=== PATIENT | male | born 1950 | race Caucasian/White ===

== ENCOUNTER 2017-08-11 10:03 | Emergency (ER) | payer MEDICARE ==
[2017-08-11] MEDS ORDERED: Ibuprofen TAB* 400 MG PO ONE (10:52)
--- NOTE | 2017-08-11 10:59 | UC ---
Minor Trauma HPI - HPI Summary HPI Summary: Patient presents s/p fall two days ago going up the stairs, and he struck the left side of his ribs on the stairs. He has had pain in the left lower rib cage since then, and states that the pain is getting worse. He states the pain is constant, and worse with movement, coughing, and/or movement. He denies fever, chills, head or neck injury and no LOC. - History of Current Complaint Hx Obtained From: Patient Onset/Duration: Sudden Onset Onset Of Pain: Immediate Severity Initially: Severe Severity Currently: Severe Mechanism Of Injury: Blunt Trauma, Direct Blow Aggravating Factor(s): Coughing, Deep Breaths, Movement Alleviating Factor(s): Other: - percocets 10/325mg splinting - Risk Factors Penetrating Injury Risk Factors: Negative Compartment Syndrome Risk Factors: Pain <Ivon Saha - Last Filed: 08/11/17 12:06> <Amalia Morrell - Last Filed: 08/11/17 13:02> - History of Current Complaint Chief Complaint: UCTrauma Stated Complaint: RIB INJURY Time Seen by Provider: 08/11/17 10:41 - Allergies/Home Medications Allergies/Adverse Reactions: Allergies Allergy/AdvReac Type Severity Reaction Status Date / Time Atorvastatin [From Lipitor] AdvReac Intermediate lost voice Verified 08/11/17 10 :42 PMH/Surg Hx/FS Hx/Imm Hx Previously Healthy: Yes - Surgical History Surgical History: Yes Surgery Procedure, Year, and Place: Tonsillectomy 03/2014. laminectomy march 2013. Meniscus repair- Lt KNEE. hernia REPAIR with mesh. carpal tunnel bilat. LT Shoulder repair/replacement June 2014. Cervical Fusion C2-C7 Oct 2013. Sep 2016 - left femur repair follow fall - Family History Known Family History: Positive: Hypertension, Diabetes, Respiratory Disease, Other - No FHx of blood clotting disorders - Social History Occupation: Retired Alcohol Use: None Substance Use Type: Prescribed Smoking Status (MU): Former Smoker Type: Cigarettes Amount Used/How Often: 3/4-1 PPD X OFF AND ON 20 YEARS Length of Time of Smoking/Using Tobacco: 15 years Have You Smoked in the Last Year: No When Did the Patient Quit Smoking/Using Tobacco: 20 years ago - Immunization History Most Recent Influenza Vaccination: 2016 Most Recent Tetanus Shot: unknown Most Recent Pneumonia Vaccination: unknown <Saha,Ivon Wayne - Last Filed: 08/11/17 12:06> Review of Systems Musculoskeletal: Myalgia All Other Systems Reviewed And Are Negative: Yes <Ivon Saha - Last Filed: 08/11/17 12:06> Physical Exam Triage Information Reviewed: Yes Appearance: Pain Distress Vital Signs: Initial Vital Signs Temp 97.9 F 08/11/17 10:34 Pulse 70 08/11/17 10:34 Resp 18 08/11/17 10:34 BP 130/85 08/11/17 10:34 Pulse Ox 99 08/11/17 10:34 Vital Signs Reviewed: Yes Eye Exam: Normal ENT Exam: Normal Neck exam: Normal Respiratory Exam: Normal Cardiovascular Exam: Normal Abdominal Exam: Normal Musculoskeletal: Positive: Other: - ribs left;inspection no areas of bruising, edema, or eccymosis. tenderness on palpation of lateral aspects of ribs 8,9,10. Skin Exam: Normal <Ivon Saha - Last Filed: 08/11/17 12:06> Vital Signs: Initial Vital Signs Temp 97.9 F 08/11/17 10:34 Pulse 70 08/11/17 10:34 Resp 18 08/11/17 10:34 BP 130/85 08/11/17 10:34 Pulse Ox 99 08/11/17 10:34 <Amalia Morrell - Last Filed: 08/11/17 13:02> Minor Trauma Course/Dx - Course Course Of Treatment: Patient presents s/p mechanical fall up the stairs two days ago, He has percocet 10/325 that he takes routinely for chronic pain. Ibuprofen was also given here, 400 mg x one dose. xrays were obtained and read as fracture of ribs eigth and nine. He was given instructions to splint when coughing, continue current pain medications and in addition add on Ibuprofen 400 three times daily. - Differential Dx/Diagnosis Differential Diagnosis/HQI/PQRI: Contusion(s), Fracture Provider Diagnoses: Fracture ribs. Rib contusion <Ivon Saha - Last Filed: 08/11/17 12:06> Discharge <Ivon Saha - Last Filed: 08/11/17 12:06> <Amalia Morrell - Last Filed: 08/11/17 13:02> - Discharge Plan Condition: Stable Disposition: HOME Patient Education Materials: Rib Fracture (ED) Referrals: Matilde Mathew MD [Primary Care Provider] - Xochitl Frederick MD [Medical Doctor] - Attestation Statement User Type: Provider - I was available for consult. This patient was seen by the [facility]. The patient was not presented to, seen by, or examined by me. -Macrina <Amalia Morrell - Last Filed: 08/11/17 13:02>
[2017-08-11 11:01] VITALS: BP 130/85
--- NOTE | 2017-08-11 11:47 | RAD ---
Indication: Rib pain. 3 views of left ribs are reviewed. There is fracture of the left ninth rib laterally. There is also fracture of the right eighth rib. The lung ulrich demonstrate no pneumothorax. There appears to BE chronic interstitial disease. IMPRESSION: Fractures of left eighth and ninth ribs.
== END 2017-08-11 12:00 | disposition home or self-care (01) ==
LOC: UCEAST 10:03
DX: S22.39XA Fracture of one rib, unspecified side, initial encounter for closed fracture (principal); Z87.891 Personal history of nicotine dependence; W10.9XXA Fall (on) (from) unspecified stairs and steps, initial encounter; Y92.9 Unspecified place or not applicable; S30.1XXA Contusion of abdominal wall, initial encounter
CPT/HCPCS: 99212; A9270-GY; G0463

== ENCOUNTER 2020-12-02 07:30 | Inpatient (IN) ==
[2021-02-03] MEDS ORDERED: Buffered Lidocaine 1% SYRIN 1 ml INTRADERM ONE ×2 (06:00→06:23)
[2021-02-03] MEDS ORDERED: Lactated Ringers 1000 ml BAG 1,000 ML IV SCH (06:00)
[2021-02-03] MEDS ORDERED: ceFAZolin 2 GM PREMIX 2 GM/50 ML BAG ONE (06:23)
[2021-02-03] MEDS ORDERED: fentaNYL 100 mcg/2 ml 50 MCG/ML VIAL ONE ×5 (06:56→15:23)
[2021-02-03] MEDS ORDERED: HYDROmorphone 1 MG/1 ML SYRINGE ONE (06:56)
[2021-02-03] MEDS ORDERED: Remifentanil 2 MG VIAL ONE ×2 (06:57→11:25)
[2021-02-03] MEDS ORDERED: Ketamine HCL 50 mg/ml 10 ml VIAL (500 MG) ONE (06:57)
[2021-02-03] MEDS ORDERED: Midazolam 2 mg/2 ml VIAL 1 mg/ml 2 ml VIAL (2 mg) ONE (06:57)
[2021-02-03] MEDS ORDERED: Succinylcholine 200 mg VIAL 20 mg/ml 10 ml VIAL (200 mg) ONE (06:57)
[2021-02-03] MEDS ORDERED: Lidocaine 2% PF 5 ML VIAL ONE (06:57)
[2021-02-03] MEDS ORDERED: Glycopyrrolate IV 0.2 MG/ML 1 ML VIAL ONE ×2 (06:57→08:44)
[2021-02-03] MEDS ORDERED: Rocuronium 50 mg VIAL 10 mg/ml 5 ml VIAL (50 mg) ONE (06:57)
[2021-02-03] MEDS ORDERED: Propofol 10 MG/ML 20 ML BTL ONE (06:58)
[2021-02-03] MEDS ORDERED: Propofol 10 mg/ml 100 ML BTL 100 ML ONE (07:00)
[2021-02-03] MEDS ORDERED: Bupivacaine 0.25% EPI 200,000 30 ML SDV ONE (07:17)
[2021-02-03] MEDS ORDERED: Bacitracin INJECTION 50,000 UNITS ONE (07:17)
[2021-02-03] MEDS ORDERED: Bupivacaine 0.25% SDV 30 ML ONE (08:16)
[2021-02-03] MEDS ORDERED: Phenylephrine IV 10 MG/ML 1 ml VIAL ONE (08:17)
[2021-02-03] MEDS ORDERED: Ondansetron 4 mg VIAL 2 MG/ML 2 ml VIAL ONE ×2 (08:44→14:07)
[2021-02-03] MEDS ORDERED: Ondansetron 4 mg VIAL 2 MG/ML 2 ml VIAL IV PRN ×2 (08:58→14:05)
[2021-02-03] MEDS ORDERED: Naloxone 0.4 mg VIAL 0.4 mg/ml 1 ml VIAL IV PRN (08:58)
[2021-02-03] MEDS ORDERED: DiMENhydriNATE IV 50 mg/ml 1 ml VIAL IV PUSH PRN (08:58)
[2021-02-03] MEDS ORDERED: oxyCODONE/Acetamin 5/325 mg TAB PO PRN ×3 (08:58→17:19)
[2021-02-03] MEDS ORDERED: Dexamethasone IV 4 MG/ML VIAL 1 ml VIAL ONE (09:15)
[2021-02-03] MEDS ORDERED: Propofol 10 mg/ml 100 ML BTL 200 ML ONE (09:40)
[2021-02-03] MEDS ORDERED: HYDROcodone/ACETAMIN 5/325 mg TAB PO PRN ×2 (14:05)
[2021-02-03] MEDS ORDERED: Magnesium Hydroxide LIQ 30 ML UDC PO PRN (14:05)
[2021-02-03] MEDS: fentaNYL 100 mcg/2 ml 50 MCG/ML VIAL IV PRN ×5 (14:08→15:31)
[2021-02-03] MEDS ORDERED: oxyCODONE/Acetamin 5/325 mg TAB ONE (14:27)
[2021-02-03] MEDS ORDERED: Senna TAB 8.6 mg TAB PO PRN (17:32)
[2021-02-03] MEDS ORDERED: Dextran 70/Hypromellose Tears Eye Drops 15 ml BTL (for Artificials Tears) BOTH EYES PRN (17:33)
[2021-02-03] MEDS ORDERED: fentaNYL PATCH 75 MCG/HR 1 PATCH TRANSDERM SCH (18:00)
[2021-02-03] MEDS: fentaNYL Patch Check Q Shift NOTE FOLLOW UP SCH (19:52)
[2021-02-03] MEDS: oxyCODONE/Acetamin 5/325 mg TAB PO PRN (20:27)
[2021-02-03] MEDS ORDERED: HYDROmorphone 1 MG/1 ML SYRINGE IV SLOW PU PRN (20:33)
[2021-02-04] MEDS: oxyCODONE/Acetamin 5/325 mg TAB PO PRN ×3 (04:35→14:16)
[2021-02-04] MEDS: fentaNYL Patch Check Q Shift NOTE FOLLOW UP SCH (07:23)
[2021-02-04 11:10] VITALS: BP 139/88
== END 2021-02-04 15:30 | disposition home or self-care (01) | DRG 460 ==
LOC: AA 02-03 06:05 → SSU 02-03 16:08
PROVIDERS: ADMIT Neurological Surgery; ATTEND Neurological Surgery

== ENCOUNTER 2024-05-08 16:44 | Inpatient (IN) ==
[2024-05-08 17:23] LABS: ABS Basophils 0.1 10^3/uL (0.0-0.1); ABS Eosinophils 0.2 10^3/uL (0.0-0.5); ABS Lymphocytes 1.8 10^3/uL (1.0-4.8); ABS Neutrophils 10.2 10^3/uL (1.5-7.6); Eosinophil % 1.5 %; Hematocrit 39.9 % (38-53); Hemoglobin 13.2 g/dL (13.2-16.3); Lymphocyte % 13.7 %; Mean Corpuscular Hemoglobin 30.9 pg (27-33); Mean Corpuscular Hgb Conc 32.9 g/dL (31-36); Mean Corpuscular Volume 93.8 fL (80-97); Mean Platelet Volume 7.4 fL (7.5-11.2); Platelet Count 462 10^3/uL (150-450); Red Blood Count 4.26 10^6/uL (4.06-5.63); Red Cell Distribution Width 14.2 % (12-17); White Blood Count 13.2 10^3/uL (3.6-10.2)
[2024-05-08 17:31] LABS: INR 1.1 (0.83-1.13)
[2024-05-08] MEDS: Albuterol/Ipratropium NEB.SOL (2.5/0.5 MG) 3 ML NEB.SOLN INH ONE (17:46)
[2024-05-08 17:47] LABS: Albumin 3.6 g/dL (3.2-5.2); Albumin/Globulin Ratio 1.1 (1-3); Calcium 8.9 mg/dL (8.6-10.3); Creatinine, Serum 0.66 mg/dL (0.67-1.17); Globulin 3.2 g/dL (2-4); Potassium 4.3 mmol/L (3.5-5.0); Total Bilirubin 0.5 mg/dL (0.2-1.0); Total Protein 6.8 g/dL (6.4-8.9); eGFR CKD-EPI 100.3 (>60)
[2024-05-08 18:32] LABS: Venous Bicarbonate HCO3 25.4 mmol/L (24-28)
[2024-05-08] MEDS: Iohexol 350 (CONTRAST) 500 ML MDV IV ONE (18:39)
[2024-05-08] MEDS: Dexamethasone IV 4 MG/ML VIAL 1 ml VIAL IV SLOW PU ONE (18:58)
[2024-05-08 18:59] LABS: High Sensitivity Troponin 1 Hr 11 pg/mL (<20)
[2024-05-08] MEDS: NS 0.9% 1000 ml BAG 1,000 ML IV ONE (19:00)
[2024-05-09] MEDS ORDERED: oxyCODONE/Acetamin 10/325(NF) TAB PO PRN (01:05)
[2024-05-09] MEDS ORDERED: Naloxone 0.4 mg VIAL 0.4 mg/ml 1 ml VIAL IV PUSH PRN (01:30)
[2024-05-09] MEDS: Cefepime 2 GM in Dextrose 2 GM/50 ML BAG IV SCH (01:56)
[2024-05-09] MEDS: fentaNYL PATCH 75 MCG/HR 1 PATCH TRANSDERM SCH (06:27)
[2024-05-09] MEDS: fentaNYL PATCH 12 MCG/HR 1 PATCH TRANSDERM SCH (06:30)
[2024-05-09] MEDS: Albuterol/Ipratropium NEB.SOL (2.5/0.5 MG) 3 ML NEB.SOLN INH PRN (06:56)
[2024-05-09] MEDS: Acetylcysteine INH SOL (RT) 200 MG/ML 4 ML VIAL INH SCH (06:57)
[2024-05-09] MEDS: fentaNYL Patch Check Q Shift NOTE FOLLOW UP SCH (07:43)
[2024-05-09] MEDS ORDERED: Zosyn per Pharmacy NOTE FOLLOW UP SCH (11:00)
[2024-05-09] MEDS: Heparin 5000 UNITS/ML 1 mL VIAL SUBCUT SCH (11:16)
[2024-05-09] MEDS: Piperacillin/Tazobac 3.375 BAG 3.375 GM/100 ML BAG IV ONE (11:16)
[2024-05-09] MEDS: Polyethylene Glycol 3350 17 GM PACKET PO SCH (11:18)
[2024-05-09] MEDS ORDERED: cefTRIAXone 1 gm/50 mL D5W 1 GM/50 ML BAG IV SCH (12:00)
[2024-05-09] MEDS: ZOSYN 3.375 GM Q8H per EXTENDED INFUSION IV SCH (13:31)
[2024-05-09] MEDS: Pravastatin 20 mg TAB (NF) PO SCH (21:24)
[2024-05-09] MEDS: Senna TAB 8.6 mg TAB PO SCH (21:25)
[2024-05-09] MEDS: Enoxaparin 40 MG/0.4 ML SYR SUBCUT SCH (21:28)
[2024-05-10 07:29] LABS: ABS Eosinophils 0.1 10^3/uL (0.0-0.5); ABS Lymphocytes 1.8 10^3/uL (1.0-4.8); ABS Monocytes 0.9 10^3/uL (0.0-1.1); ABS Neutrophils 7.6 10^3/uL (1.5-7.6); ABS Nucleated RBC 0.02 10^3/ul; Hematocrit 37.8 % (38-53); Hemoglobin 12.5 g/dL (13.2-16.3); Lymphocyte % 17.4 %; Mean Corpuscular Hemoglobin 31.1 pg (27-33); Mean Corpuscular Volume 94.1 fL (80-97); Mean Platelet Volume 7.5 fL (7.5-11.2); Nucleated Red Blood Cells % 0.2 %/100WBC (0.0-0.8); Platelet Count 410 10^3/uL (150-450); Red Blood Count 4.02 10^6/uL (4.06-5.63); Red Cell Distribution Width 14.6 % (12-17); White Blood Count 10.5 10^3/uL (3.6-10.2)
[2024-05-10 07:46] LABS: Calcium 8.3 mg/dL (8.6-10.3); Creatinine, Serum 0.6 mg/dL (0.67-1.17); Potassium 4.4 mmol/L (3.5-5.0); eGFR CKD-EPI 103.2 (>60)
[2024-05-10] MEDS: CMC:FLUTICAS/UMECLI/VILANT 100-62.5-25 MDI (NF) INH SCH (09:02)
[2024-05-10] MEDS ORDERED: Acetylcysteine INH SOL (RT) 200 MG/ML 4 ML VIAL INH PRN (15:13)
[2024-05-10] MEDS: Albuterol HFA INHALER 8 gm MDI INH PRN (19:24)
[2024-05-10] MEDS: fentaNYL PATCH 75 MCG/HR 1 PATCH TRANSDERM SCH (20:31)
[2024-05-11 08:14] LABS: ABS Eosinophils 0.2 10^3/uL (0.0-0.5); ABS Lymphocytes 1.2 10^3/uL (1.0-4.8); Eosinophil % 2.1 %; Hematocrit 37.4 % (38-53); Hemoglobin 12.5 g/dL (13.2-16.3); Lymphocyte % 11.3 %; Mean Corpuscular Hemoglobin 31.2 pg (27-33); Mean Corpuscular Hgb Conc 33.5 g/dL (31-36); Mean Corpuscular Volume 93.2 fL (80-97); Mean Platelet Volume 7.5 fL (7.5-11.2); Platelet Count 385 10^3/uL (150-450); Red Blood Count 4.01 10^6/uL (4.06-5.63); Red Cell Distribution Width 14.5 % (12-17); White Blood Count 10.4 10^3/uL (3.6-10.2)
[2024-05-11 09:13] LABS: Calcium 8.2 mg/dL (8.6-10.3); Creatinine, Serum 0.6 mg/dL (0.67-1.17); Magnesium 1.9 mg/dL (1.9-2.7); Potassium 4.3 mmol/L (3.5-5.0); eGFR CKD-EPI 103.2 (>60)
[2024-05-11] MEDS: Albuterol/Ipratropium NEB.SOL (2.5/0.5 MG) 3 ML NEB.SOLN INH ONE (17:48)
[2024-05-11] MEDS: Labetalol IV 5 MG/ML 20 ml VIAL IV PUSH ONE (18:30)
[2024-05-11] MEDS: hydrALAZINE 20 mg/ml 1 ML Vial IV IV SLOW PU ONE (18:55)
[2024-05-11] MEDS: Labetalol IV 5 MG/ML 20 ml VIAL ONE (19:00)
[2024-05-11] MEDS: Furosemide 40 mg/4 ml IV VIAL IV ONE (19:17)
[2024-05-12 04:45] LABS: ABS Eosinophils 0.2 10^3/uL (0.0-0.5); ABS Lymphocytes 1.1 10^3/uL (1.0-4.8); ABS Monocytes 1.1 10^3/uL (0.0-1.1); ABS Neutrophils 10.4 10^3/uL (1.5-7.6); Eosinophil % 1.4 %; Hematocrit 36.3 % (38-53); Hemoglobin 12.2 g/dL (13.2-16.3); Lymphocyte % 8.8 %; Mean Corpuscular Hgb Conc 33.6 g/dL (31-36); Mean Corpuscular Volume 92.4 fL (80-97); Mean Platelet Volume 7.7 fL (7.5-11.2); Platelet Count 412 10^3/uL (150-450); Red Blood Count 3.93 10^6/uL (4.06-5.63); Red Cell Distribution Width 14.3 % (12-17); White Blood Count 12.9 10^3/uL (3.6-10.2)
[2024-05-12 05:02] LABS: INR 1.14 (0.83-1.13)
[2024-05-12 05:53] LABS: Creatinine, Serum 0.59 mg/dL (0.67-1.17); Phosphorus 3.8 mg/dL (2.5-5.0); Potassium 4.3 mmol/L (3.5-5.0); eGFR CKD-EPI 103.7 (>60)
[2024-05-12] MEDS: Iohexol 350 (CONTRAST) 500 ML MDV IV ONE (12:58)
[2024-05-12 15:28] LABS: Body Fluid Total Nucleated 6348 /mcL
[2024-05-12 16:10] LABS: Body Fluid Mono 20 %; Body Fluid Other Cells 12; Body Fluid Total Cells Counted 200
[2024-05-12 16:17] LABS: Body Fluid Appearance Bloody; Body Fluid Color Red; Body Fluid Source Pleural Fluid
[2024-05-12] MEDS: Enoxaparin 40 MG/0.4 ML SYR SUBCUT SCH (19:34)
[2024-05-13 04:36] LABS: ABS Eosinophils 0.2 10^3/uL (0.0-0.5); ABS Lymphocytes 0.8 10^3/uL (1.0-4.8); ABS Monocytes 0.9 10^3/uL (0.0-1.1); ABS Neutrophils 8.4 10^3/uL (1.5-7.6); ABS Nucleated RBC 0.01 10^3/ul; Eosinophil % 1.7 %; Hemoglobin 12.3 g/dL (13.2-16.3); Lymphocyte % 7.9 %; Mean Corpuscular Hemoglobin 30.8 pg (27-33); Mean Corpuscular Hgb Conc 33.1 g/dL (31-36); Mean Platelet Volume 7.3 fL (7.5-11.2); Platelet Count 390 10^3/uL (150-450); Red Blood Count 3.98 10^6/uL (4.06-5.63); Red Cell Distribution Width 14.2 % (12-17); White Blood Count 10.4 10^3/uL (3.6-10.2)
[2024-05-13 05:02] LABS: Calcium 7.9 mg/dL (8.6-10.3); Creatinine, Serum 0.57 mg/dL (0.67-1.17); Phosphorus 2.7 mg/dL (2.5-5.0); Potassium 4.1 mmol/L (3.5-5.0); eGFR CKD-EPI 104.8 (>60)
[2024-05-13 13:07] LABS: QuantiferonTb Gold Plus Result Negative (Negative)
[2024-05-14 06:50] LABS: ABS Eosinophils 0.2 10^3/uL (0.0-0.5); ABS Lymphocytes 1.1 10^3/uL (1.0-4.8); ABS Neutrophils 7.8 10^3/uL (1.5-7.6); Eosinophil % 1.9 %; Hematocrit 32.8 % (38-53); Hemoglobin 11.1 g/dL (13.2-16.3); Lymphocyte % 10.4 %; Mean Corpuscular Hemoglobin 31.1 pg (27-33); Mean Corpuscular Hgb Conc 33.8 g/dL (31-36); Mean Corpuscular Volume 91.9 fL (80-97); Platelet Count 373 10^3/uL (150-450); Red Blood Count 3.57 10^6/uL (4.06-5.63); Red Cell Distribution Width 13.8 % (12-17); White Blood Count 10.1 10^3/uL (3.6-10.2)
[2024-05-14 07:17] LABS: Calcium 7.7 mg/dL (8.6-10.3); Creatinine, Serum 0.45 mg/dL (0.67-1.17); Magnesium 1.8 mg/dL (1.9-2.7); Phosphorus 2.8 mg/dL (2.5-5.0); Potassium 3.9 mmol/L (3.5-5.0); eGFR CKD-EPI 112.6 (>60)
[2024-05-14] MEDS: Magnesium Sulfate IV 1GM/100ML 1 GM/100 ML BAG IV ONE (12:02)
[2024-05-15 06:58] LABS: ABS Eosinophils 0.3 10^3/uL (0.0-0.5); ABS Monocytes 0.9 10^3/uL (0.0-1.1); ABS Neutrophils 6.2 10^3/uL (1.5-7.6); Eosinophil % 3.1 %; Hematocrit 32.1 % (38-53); Hemoglobin 10.9 g/dL (13.2-16.3); Lymphocyte % 11.7 %; Mean Corpuscular Hemoglobin 31.2 pg (27-33); Mean Corpuscular Hgb Conc 33.8 g/dL (31-36); Mean Corpuscular Volume 92.2 fL (80-97); Mean Platelet Volume 7.5 fL (7.5-11.2); Platelet Count 384 10^3/uL (150-450); Red Blood Count 3.48 10^6/uL (4.06-5.63); Red Cell Distribution Width 13.9 % (12-17); White Blood Count 8.3 10^3/uL (3.6-10.2)
[2024-05-15 08:39] LABS: Calcium 7.6 mg/dL (8.6-10.3); Creatinine, Serum 0.47 mg/dL (0.67-1.17); Magnesium 1.9 mg/dL (1.9-2.7); Phosphorus 2.7 mg/dL (2.5-5.0); Potassium 3.9 mmol/L (3.5-5.0); eGFR CKD-EPI 111.1 (>60)
[2024-05-15 09:40] LABS: Fluid Type, Protein, Total PLEURAL FLUID; Total Protein, BF 4.6 g/dL
[2024-05-15] MEDS: Polyethylene Glycol 3350 17 GM PACKET PO SCH (14:07)
[2024-05-15] MEDS: Iohexol 300 (CONTRAST) 10 ML SDV IV ONE (15:24)
[2024-05-15 16:20] LABS: Lactate Dehydrogenase, BF 794 U/L
[2024-05-15] MEDS: Lidocaine 1% VIAL 10 MG/ML 30 ML VIAL INJ ONE (17:27)
[2024-05-15] MEDS: Gadoteridol (CONTRAST) 279.3 MG/ML 10 ML IV ONE (21:07)
[2024-05-15] MEDS: Senna TAB 8.6 mg TAB PO SCH (22:48)
[2024-05-16 06:17] LABS: ABS Eosinophils 0.3 10^3/uL (0.0-0.5); ABS Lymphocytes 0.9 10^3/uL (1.0-4.8); ABS Neutrophils 6.5 10^3/uL (1.5-7.6); Eosinophil % 2.9 %; Hematocrit 31.3 % (38-53); Hemoglobin 10.6 g/dL (13.2-16.3); Lymphocyte % 10.1 %; Mean Corpuscular Hemoglobin 31.1 pg (27-33); Mean Corpuscular Hgb Conc 33.9 g/dL (31-36); Mean Corpuscular Volume 91.9 fL (80-97); Mean Platelet Volume 7.9 fL (7.5-11.2); Platelet Count 435 10^3/uL (150-450); Red Blood Count 3.41 10^6/uL (4.06-5.63); Red Cell Distribution Width 13.9 % (12-17); White Blood Count 8.7 10^3/uL (3.6-10.2)
[2024-05-16] MEDS: Iohexol 350 (CONTRAST) 500 ML MDV IV ONE (06:24)
[2024-05-16 06:35] LABS: Calcium 7.8 mg/dL (8.6-10.3); Creatinine, Serum 0.47 mg/dL (0.67-1.17); Magnesium 1.9 mg/dL (1.9-2.7); Potassium 4.1 mmol/L (3.5-5.0); eGFR CKD-EPI 111.1 (>60)
[2024-05-16] MEDS: Levalbuterol 0.63MG/3ML NEB UNIT OF USE INH PRN (21:00)
[2024-05-17 05:59] LABS: ABS Eosinophils 0.2 10^3/uL (0.0-0.5); ABS Monocytes 0.9 10^3/uL (0.0-1.1); ABS Neutrophils 6.5 10^3/uL (1.5-7.6); ABS Nucleated RBC 0.01 10^3/ul; Eosinophil % 2.6 %; Hematocrit 32.1 % (38-53); Hemoglobin 10.9 g/dL (13.2-16.3); Lymphocyte % 11.5 %; Mean Corpuscular Hemoglobin 31.4 pg (27-33); Mean Corpuscular Hgb Conc 34.1 g/dL (31-36); Mean Corpuscular Volume 92.1 fL (80-97); Mean Platelet Volume 7.5 fL (7.5-11.2); Nucleated Red Blood Cells % 0.1 %/100WBC (0.0-0.8); Platelet Count 405 10^3/uL (150-450); Red Blood Count 3.48 10^6/uL (4.06-5.63); Red Cell Distribution Width 13.9 % (12-17); White Blood Count 8.7 10^3/uL (3.6-10.2)
[2024-05-17 06:31] LABS: Calcium 7.8 mg/dL (8.6-10.3); Creatinine, Serum 0.46 mg/dL (0.67-1.17); Potassium 4.2 mmol/L (3.5-5.0); eGFR CKD-EPI 111.8 (>60)
[2024-05-18] MEDS: fentaNYL Patch Check Q Shift NOTE FOLLOW UP SCH (07:30)
[2024-05-18 08:55] LABS: ABS Eosinophils 0.1 10^3/uL (0.0-0.5); ABS Lymphocytes 0.7 10^3/uL (1.0-4.8); ABS Monocytes 0.9 10^3/uL (0.0-1.1); ABS Neutrophils 6.9 10^3/uL (1.5-7.6); Eosinophil % 1.6 %; Hematocrit 31.7 % (38-53); Hemoglobin 10.6 g/dL (13.2-16.3); Lymphocyte % 7.7 %; Mean Corpuscular Hemoglobin 30.5 pg (27-33); Mean Corpuscular Hgb Conc 33.5 g/dL (31-36); Mean Corpuscular Volume 91.1 fL (80-97); Mean Platelet Volume 7.6 fL (7.5-11.2); Platelet Count 442 10^3/uL (150-450); Red Blood Count 3.48 10^6/uL (4.06-5.63); Red Cell Distribution Width 13.9 % (12-17); White Blood Count 8.6 10^3/uL (3.6-10.2)
[2024-05-18] MEDS: fentaNYL PATCH 12 MCG/HR 1 PATCH TRANSDERM SCH (09:01)
[2024-05-18] MEDS: fentaNYL PATCH 75 MCG/HR 1 PATCH TRANSDERM SCH (09:03)
[2024-05-18 09:09] LABS: Calcium 7.9 mg/dL (8.6-10.3); Creatinine, Serum 0.42 mg/dL (0.67-1.17); Magnesium 1.9 mg/dL (1.9-2.7); Potassium 4.3 mmol/L (3.5-5.0); eGFR CKD-EPI 114.9 (>60)
[2024-05-18 14:07] VITALS: BP 121/77
[2024-05-18] MEDS ORDERED: fentaNYL Patch Check Q Shift NOTE FOLLOW UP SCH (19:00)
== END 2024-05-18 15:30 | disposition home or self-care (01) | DRG 871 ==
LOC: EDHOLD 16:44 → ED 16:44 → SUATTDRO 05-09 00:14 → MEDTELE 05-09 01:53 → SUATTDRO 05-09 10:40 → ICU 05-11 19:02 → MEDTELE 05-13 23:11
PROVIDERS: ADMIT Internal Medicine; ATTEND Internal Medicine

== ENCOUNTER 2024-06-05 10:38 | Inpatient (IN) ==
[2024-06-05 11:12] LABS: ABS Lymphocytes 0.9 10^3/uL (1.0-4.8); ABS Monocytes 1.4 10^3/uL (0.0-1.1); ABS Neutrophils 11.9 10^3/uL (1.5-7.6); ABS Nucleated RBC 0.01 10^3/ul; Eosinophil % 0.2 %; Hematocrit 35.2 % (38-53); Hemoglobin 11.4 g/dL (13.2-16.3); Lymphocyte % 6.3 %; Mean Corpuscular Hgb Conc 32.4 g/dL (31-36); Mean Corpuscular Volume 89.4 fL (80-97); Mean Platelet Volume 7.1 fL (7.5-11.2); Platelet Count 486 10^3/uL (150-450); Red Blood Count 3.94 10^6/uL (4.06-5.63); Red Cell Distribution Width 14.3 % (12-17); White Blood Count 14.2 10^3/uL (3.6-10.2)
[2024-06-05 11:28] LABS: PCO2 Arterial 41 mmHg (35-45); PO2 Arterial 73 mmHg (80-100)
[2024-06-05 11:42] LABS: Albumin 3.2 g/dL (3.2-5.2); Albumin/Globulin Ratio 0.9 (1-3); C Reactive Protein 161.36 mg/L (<8.01); Calcium 9.1 mg/dL (8.6-10.3); Creatinine, Serum 0.47 mg/dL (0.67-1.17); Globulin 3.7 g/dL (2-4); Potassium 4.2 mmol/L (3.5-5.0); Total Bilirubin 0.5 mg/dL (0.2-1.0); Total Protein 6.9 g/dL (6.4-8.9); eGFR CKD-EPI 111.1 (>60)
[2024-06-05 12:18] LABS: Urine Appearance Clear; Urine Bilirubin Negative (Negative); Urine Blood Negative (Negative); Urine Color Yellow; Urine Glucose Negative (Negative); Urine Ketones 2+ (Negative); Urine Nitrite Negative (Negative); Urine Protein 1+ (>=30 mg/dL) (Negative); Urine Specific Gravity 1.026 (1.002-1.030); Urine Urobilinogen Negative (Negative)
[2024-06-05 12:21] LABS: Urine Bacteria Absent /HPF (Absent); Urine Red Blood Cell Trace(0-2/hpf) /HPF (0-Trace); Urine White Blood Cell Trace(0-5/hpf) /HPF (0-Trace)
[2024-06-05 12:36] LABS: High Sensitivity Troponin 1 Hr 20 pg/mL (<20)
[2024-06-05] MEDS: Iohexol 350 (CONTRAST) 500 ML MDV IV ONE (13:11)
[2024-06-05] MEDS: cefTRIAXone 1 gm/50 mL D5W 1 GM/50 ML BAG IV ONE (15:27)
[2024-06-05] MEDS: Azithromycin 500 mg/250 ml NS 500 MG/250 ML BAG IVPB ONE (16:11)
[2024-06-05] MEDS ORDERED: oxyCODONE/Acetamin 10/325(NF) TAB PO PRN (16:25)
[2024-06-05] MEDS ORDERED: Albuterol HFA INHALER 8 gm MDI INH ONE (16:43)
[2024-06-05] MEDS: Albuterol HFA INHALER 8 gm MDI INH PRN (16:46)
[2024-06-05] MEDS: fentaNYL Patch Check Q Shift NOTE FOLLOW UP SCH (19:02)
[2024-06-05] MEDS ORDERED: BUDESONIDE/GLYCOPYR/FORMOTEROL MDI (NF) INH SCH (21:00)
[2024-06-05] MEDS ORDERED: FLUTICAS/UMECLI/VILANT 100-62.5-25 MDI (NF) INH SCH (21:00)
[2024-06-05] MEDS: Acetylcysteine INHALATION SOL 200 MG/ML NEB.SOLN 10 ML INH SCH (21:40)
[2024-06-05] MEDS: CMC:Pravastatin 20 mg TAB (NF) PO SCH (22:15)
[2024-06-05] MEDS: Heparin 5000 UNITS/ML 1 mL VIAL SUBCUT SCH (22:16)
[2024-06-06] MEDS: PTO:BUDESONIDE/GLYCOPYR/FORMOTEROL MDI (NF) INH SCH (00:04)
[2024-06-06] MEDS: fentaNYL PATCH 12 MCG/HR 1 PATCH TRANSDERM SCH (00:27)
[2024-06-06] MEDS: fentaNYL PATCH 75 MCG/HR 1 PATCH TRANSDERM SCH (00:30)
[2024-06-06] MEDS: Albuterol HFA INHALER 8 gm MDI INH PRN (03:10)
[2024-06-06 06:51] LABS: ABS Eosinophils 0.1 10^3/uL (0.0-0.5); ABS Lymphocytes 1.1 10^3/uL (1.0-4.8); ABS Monocytes 1.3 10^3/uL (0.0-1.1); ABS Neutrophils 9.8 10^3/uL (1.5-7.6); Eosinophil % 0.7 %; Hematocrit 32.3 % (38-53); Hemoglobin 10.6 g/dL (13.2-16.3); Lymphocyte % 8.7 %; Mean Corpuscular Hemoglobin 29.5 pg (27-33); Mean Corpuscular Volume 89.3 fL (80-97); Mean Platelet Volume 7.1 fL (7.5-11.2); Platelet Count 425 10^3/uL (150-450); Red Blood Count 3.61 10^6/uL (4.06-5.63); Red Cell Distribution Width 14.5 % (12-17); White Blood Count 12.3 10^3/uL (3.6-10.2)
[2024-06-06 08:22] LABS: Calcium 8.5 mg/dL (8.6-10.3); Magnesium 1.8 mg/dL (1.9-2.7); Phosphorus 3.6 mg/dL (2.5-5.0)
[2024-06-06 08:44] LABS: Creatinine, Serum 0.42 mg/dL (0.67-1.17); eGFR CKD-EPI 114.9 (>60)
[2024-06-06] MEDS ORDERED: fentaNYL PATCH 12 MCG/HR 1 PATCH TRANSDERM SCH (09:00)
[2024-06-06] MEDS ORDERED: fentaNYL PATCH 75 MCG/HR 1 PATCH TRANSDERM SCH (09:00)
[2024-06-06] MEDS ORDERED: Zosyn per Pharmacy NOTE FOLLOW UP SCH (10:00)
[2024-06-06] MEDS: Azithromycin 500 mg/250 ml NS 500 MG/250 ML BAG IVPB SCH (11:22)
[2024-06-06] MEDS: Piperacillin/Tazobac 3.375 BAG 3.375 GM/100 ML BAG IV ONE (11:28)
[2024-06-06] MEDS: ZOSYN 3.375 GM Q8H per EXTENDED INFUSION IV SCH (16:37)
[2024-06-06] MEDS: Senna TAB 8.6 mg TAB PO SCH (20:14)
[2024-06-07 06:51] LABS: ABS Basophils 0.1 10^3/uL (0.0-0.1); ABS Eosinophils 0.1 10^3/uL (0.0-0.5); ABS Lymphocytes 0.7 10^3/uL (1.0-4.8); ABS Monocytes 1.1 10^3/uL (0.0-1.1); ABS Neutrophils 10.2 10^3/uL (1.5-7.6); Eosinophil % 1.1 %; Hematocrit 32.1 % (38-53); Hemoglobin 10.5 g/dL (13.2-16.3); Lymphocyte % 5.9 %; Mean Corpuscular Hemoglobin 29.5 pg (27-33); Mean Corpuscular Hgb Conc 32.9 g/dL (31-36); Mean Corpuscular Volume 89.7 fL (80-97); Mean Platelet Volume 7.3 fL (7.5-11.2); Platelet Count 430 10^3/uL (150-450); Red Blood Count 3.58 10^6/uL (4.06-5.63); Red Cell Distribution Width 14.1 % (12-17); White Blood Count 12.2 10^3/uL (3.6-10.2)
[2024-06-07 08:15] LABS: Calcium 8.2 mg/dL (8.6-10.3); Magnesium 1.9 mg/dL (1.9-2.7); Potassium 3.9 mmol/L (3.5-5.0)
[2024-06-07] MEDS: Polyethylene Glycol 3350 17 GM PACKET PO SCH (09:05)
[2024-06-07 09:49] LABS: Creatinine, Serum 0.48 mg/dL (0.67-1.17); eGFR CKD-EPI 110.4 (>60)
[2024-06-07 18:40] LABS: Body Fluid Total Nucleated 4773 /mcL
[2024-06-07 18:59] LABS: Body Fluid Mono 66 %; Body Fluid Total Cells Counted 200
[2024-06-07 19:01] LABS: Body Fluid Appearance Cloudy; Body Fluid Color Pink; Body Fluid Source Pleural Fluid
[2024-06-08 07:16] LABS: ABS Eosinophils 0.2 10^3/uL (0.0-0.5); ABS Monocytes 1.1 10^3/uL (0.0-1.1); ABS Neutrophils 8.5 10^3/uL (1.5-7.6); Eosinophil % 2.1 %; Hematocrit 32.7 % (38-53); Hemoglobin 10.8 g/dL (13.2-16.3); Lymphocyte % 8.8 %; Mean Corpuscular Hemoglobin 29.6 pg (27-33); Mean Corpuscular Volume 89.8 fL (80-97); Mean Platelet Volume 7.4 fL (7.5-11.2); Platelet Count 431 10^3/uL (150-450); Red Blood Count 3.64 10^6/uL (4.06-5.63); Red Cell Distribution Width 14.3 % (12-17); White Blood Count 10.9 10^3/uL (3.6-10.2)
[2024-06-08 09:31] LABS: Calcium 8.2 mg/dL (8.6-10.3); Creatinine, Serum 0.43 mg/dL (0.67-1.17); Magnesium 1.9 mg/dL (1.9-2.7); Potassium 3.9 mmol/L (3.5-5.0); eGFR CKD-EPI 114.1 (>60)
[2024-06-08] MEDS: Potassium EFFERVES 25 meq TAB PO ONE (10:32)
[2024-06-08] MEDS: Sodium Chloride(INHALANT) 7% 4 ML NEB.SOLN INH PRN (13:40)
[2024-06-09 06:33] LABS: ABS Basophils 0.1 10^3/uL (0.0-0.1); ABS Eosinophils 0.1 10^3/uL (0.0-0.5); ABS Lymphocytes 0.5 10^3/uL (1.0-4.8); ABS Monocytes 1.3 10^3/uL (0.0-1.1); ABS Neutrophils 10.7 10^3/uL (1.5-7.6); Eosinophil % 0.8 %; Hematocrit 31.8 % (38-53); Hemoglobin 10.6 g/dL (13.2-16.3); Lymphocyte % 4.1 %; Mean Corpuscular Hemoglobin 29.6 pg (27-33); Mean Corpuscular Hgb Conc 33.3 g/dL (31-36); Mean Corpuscular Volume 88.9 fL (80-97); Mean Platelet Volume 7.5 fL (7.5-11.2); Platelet Count 442 10^3/uL (150-450); Red Blood Count 3.58 10^6/uL (4.06-5.63); Red Cell Distribution Width 14.4 % (12-17); White Blood Count 12.7 10^3/uL (3.6-10.2)
[2024-06-09 07:24] LABS: Calcium 8.2 mg/dL (8.6-10.3); Creatinine, Serum 0.39 mg/dL (0.67-1.17); Magnesium 1.8 mg/dL (1.9-2.7); eGFR CKD-EPI 117.5 (>60)
[2024-06-09] MEDS: Albuterol 2.5mg/3 ml (0.083%) NEB.SOLN INH PRN (09:09)
[2024-06-09] MEDS: Albuterol 2.5mg/3 ml (0.083%) NEB.SOLN INH ONE (13:35)
[2024-06-09] MEDS: Albuterol HFA INHALER 8 gm MDI INH PRN (20:20)
[2024-06-10 07:37] LABS: ABS Eosinophils 0.2 10^3/uL (0.0-0.5); ABS Lymphocytes 0.6 10^3/uL (1.0-4.8); ABS Monocytes 1.4 10^3/uL (0.0-1.1); Eosinophil % 1.3 %; Hematocrit 30.2 % (38-53); Hemoglobin 9.9 g/dL (13.2-16.3); Lymphocyte % 5.1 %; Mean Corpuscular Hemoglobin 29.6 pg (27-33); Mean Corpuscular Hgb Conc 32.8 g/dL (31-36); Mean Corpuscular Volume 90.3 fL (80-97); Mean Platelet Volume 7.7 fL (7.5-11.2); Platelet Count 444 10^3/uL (150-450); Red Blood Count 3.35 10^6/uL (4.06-5.63); Red Cell Distribution Width 14.4 % (12-17); White Blood Count 12.2 10^3/uL (3.6-10.2)
[2024-06-10 07:54] LABS: Calcium 8.3 mg/dL (8.6-10.3); Creatinine, Serum 0.4 mg/dL (0.67-1.17); Magnesium 1.9 mg/dL (1.9-2.7); Potassium 4.2 mmol/L (3.5-5.0); eGFR CKD-EPI 116.6 (>60)
[2024-06-10 12:07] LABS: Fluid Type, Protein, Total PLEURAL; Glucose, BF 21 mg/dL; Total Protein, BF 3.2 g/dL
[2024-06-10 12:28] LABS: Lactate Dehydrogenase, BF 1412 U/L
[2024-06-11 06:30] LABS: ABS Lymphocytes 0.8 10^3/uL (1.0-4.8); ABS Monocytes 1.5 10^3/uL (0.0-1.1); ABS Neutrophils 10.4 10^3/uL (1.5-7.6); Eosinophil % 0.3 %; Hematocrit 32.1 % (38-53); Hemoglobin 10.5 g/dL (13.2-16.3); Lymphocyte % 6.3 %; Mean Corpuscular Hemoglobin 29.4 pg (27-33); Mean Corpuscular Hgb Conc 32.6 g/dL (31-36); Mean Platelet Volume 7.6 fL (7.5-11.2); Platelet Count 473 10^3/uL (150-450); Red Blood Count 3.57 10^6/uL (4.06-5.63); Red Cell Distribution Width 14.6 % (12-17); White Blood Count 12.7 10^3/uL (3.6-10.2)
[2024-06-11 07:03] LABS: Calcium 8.2 mg/dL (8.6-10.3); Creatinine, Serum 0.4 mg/dL (0.67-1.17); Magnesium 1.9 mg/dL (1.9-2.7); Potassium 4.3 mmol/L (3.5-5.0); Total Protein 5.6 g/dL (6.4-8.9); eGFR CKD-EPI 116.6 (>60)
[2024-06-11 12:04] LABS: Albumin 2.6 g/dL (3.2-5.2)
[2024-06-11] MEDS: LORazepam 2 mg VIAL 1 ml IV PUSH SCH (14:22)
[2024-06-11] MEDS ORDERED: Morphine 2 MG/ML SYRINGE IV PRN (16:35)
[2024-06-11] MEDS: Propofol 10 mg/ml 100 ML BTL 1,000 MG/100 ML BTL IV SCH ×2 (17:25→19:35)
[2024-06-11] MEDS: fentaNYL INFUSION 50 mcg/mL VL 2,500 MCG/50 ML VIAL IV SCH ×2 (17:26→19:15)
[2024-06-11] MEDS: Rocuronium 50 mg VIAL 10 mg/ml 5 ml VIAL (50 mg) ONE (18:00)
[2024-06-11] MEDS: Succinylcholine 200 mg VIAL 20 mg/ml 10 ml VIAL (200 mg) ONE (18:01)
[2024-06-11] MEDS: Phenylephrine 40 mcg/mL 10mL (400mcg) SYRINGE ONE (18:01)
[2024-06-11] MEDS: Chlorhexidine MOUTHWASH 0.12% 15 ML UDC TOPICAL SCH (18:01)
[2024-06-11] MEDS: Norepinephrine 4 MG/250mL D5W 4,000 MCG/250 ML BAG IV ONE (18:01)
[2024-06-11 18:25] LABS: Resp Rate 16
[2024-06-11 18:29] LABS: PCO2 Arterial 53 mmHg (35-45); PO2 Arterial 152 mmHg (80-100)
[2024-06-11 18:45] LABS: Urine Appearance Clear; Urine Bilirubin Negative (Negative); Urine Blood 1+ (Negative); Urine Color Light-Yellow; Urine Glucose Negative (Negative); Urine Ketones Negative (Negative); Urine Nitrite Negative (Negative); Urine Protein Trace (Negative); Urine Specific Gravity 1.024 (1.002-1.030); Urine Urobilinogen Negative (Negative)
[2024-06-11 18:51] LABS: Urine Bacteria Absent /HPF (Absent); Urine Red Blood Cell 1+(3-5/hpf) /HPF (0-Trace); Urine Squamous Epithelial Cell Present /HPF (Absent); Urine White Blood Cell Trace(0-5/hpf) /HPF (0-Trace)
[2024-06-11] MEDS: methylPREDNISolone SOD SUCC 40 mg/ml 1 ml VIAL IV SCH (18:55)
[2024-06-11] MEDS: Lactated Ringers 1000 ml BAG 500 ML IV ONE (19:22)
[2024-06-11 20:08] LABS: Phosphorus 3.2 mg/dL (2.5-5.0)
[2024-06-11] MEDS: Norepinephrine 4 MG/250mL D5W 4,000 MCG/250 ML BAG IV SCH (20:33)
[2024-06-11] MEDS: Lactated Ringers 1000 ml BAG 1,000 ML IV ONE (20:51)
[2024-06-11] MEDS ORDERED: Famotidine IV 10 MG/ML 2 ml VIAL (20 mg) IV SLOW PU SCH (21:00)
[2024-06-11] MEDS: Senna TAB 8.6 mg TAB NG TUBE SCH (22:01)
[2024-06-12 04:30] LABS: ABS Lymphocytes 0.6 10^3/uL (1.0-4.8); ABS Monocytes 1.2 10^3/uL (0.0-1.1); ABS Neutrophils 14.1 10^3/uL (1.5-7.6); Hematocrit 30.9 % (38-53); Hemoglobin 10.1 g/dL (13.2-16.3); Mean Corpuscular Hemoglobin 29.4 pg (27-33); Mean Corpuscular Hgb Conc 32.8 g/dL (31-36); Mean Corpuscular Volume 89.7 fL (80-97); Mean Platelet Volume 7.4 fL (7.5-11.2); Platelet Count 555 10^3/uL (150-450); Red Blood Count 3.44 10^6/uL (4.06-5.63); Red Cell Distribution Width 14.5 % (12-17); White Blood Count 15.9 10^3/uL (3.6-10.2)
[2024-06-12 05:03] LABS: Calcium (PTH Intact) 8.6 mg/dL (8.6-10.3)
[2024-06-12 05:04] LABS: Albumin 2.6 g/dL (3.2-5.2); Albumin/Globulin Ratio 0.9 (1-3); Calcium 8.5 mg/dL (8.6-10.3); Creatinine, Serum 0.4 mg/dL (0.67-1.17); Magnesium 1.9 mg/dL (1.9-2.7); Phosphorus 4.1 mg/dL (2.5-5.0); Potassium 4.4 mmol/L (3.5-5.0); Total Bilirubin 0.4 mg/dL (0.2-1.0); Total Protein 5.6 g/dL (6.4-8.9); eGFR CKD-EPI 116.6 (>60)
[2024-06-12] MEDS: Polyethylene Glycol 3350 17 GM PACKET NG TUBE SCH (07:19)
[2024-06-12] MEDS: Pantoprazole VIAL 40 MG VIAL IV SCH (07:57)
[2024-06-12] MEDS ORDERED: Albuterol/Ipratropium NEB.SOL (2.5/0.5 MG) 3 ML NEB.SOLN INH PRN (08:59)
[2024-06-12] MEDS ORDERED: methylPREDNISolone SOD SUCC 40 mg/ml 1 ml VIAL IV SCH (09:00)
[2024-06-12] MEDS: Piperacillin/Tazobac 3.375 BAG 3.375 GM/100 ML BAG IV ONE (09:29)
[2024-06-12] MEDS ORDERED: Albuterol 2.5mg/3 ml (0.083%) NEB.SOLN INH SCH (11:00)
[2024-06-12] MEDS: Albuterol 2.5mg/3 ml (0.083%) NEB.SOLN INH PRN (11:01)
[2024-06-12] MEDS: Acetylcysteine INHALATION SOL 200 MG/ML NEB.SOLN 10 ML INH PRN (11:02)
[2024-06-12] MEDS: fentaNYL 100 mcg/2 ml 50 MCG/ML VIAL IV SLOW PU PRN (11:12)
[2024-06-12] MEDS: ZOSYN 3.375 GM Q8H per EXTENDED INFUSION IV SCH (13:46)
[2024-06-12] MEDS: Albuterol/Ipratropium NEB.SOL (2.5/0.5 MG) 3 ML NEB.SOLN INH SCH (14:18)
[2024-06-12 18:10] LABS: Calcium 8.6 mg/dL (8.6-10.3); Creatinine, Serum 0.37 mg/dL (0.67-1.17); Phosphorus 3.8 mg/dL (2.5-5.0); Potassium 4.4 mmol/L (3.5-5.0); eGFR CKD-EPI 119.4 (>60)
[2024-06-12 22:24] LABS: Calcium 8.5 mg/dL (8.6-10.3); Creatinine, Serum 0.37 mg/dL (0.67-1.17); Potassium 4.2 mmol/L (3.5-5.0); eGFR CKD-EPI 119.4 (>60)
[2024-06-13 04:56] LABS: ABS Lymphocytes 0.7 10^3/uL (1.0-4.8); ABS Monocytes 1.3 10^3/uL (0.0-1.1); ABS Neutrophils 17.9 10^3/uL (1.5-7.6); Hematocrit 31.6 % (38-53); Hemoglobin 10.5 g/dL (13.2-16.3); Lymphocyte % 3.6 %; Mean Corpuscular Hemoglobin 29.5 pg (27-33); Mean Corpuscular Hgb Conc 33.1 g/dL (31-36); Mean Platelet Volume 7.3 fL (7.5-11.2); Platelet Count 539 10^3/uL (150-450); Red Blood Count 3.55 10^6/uL (4.06-5.63); Red Cell Distribution Width 14.6 % (12-17); White Blood Count 19.9 10^3/uL (3.6-10.2)
[2024-06-13 05:30] LABS: Albumin 2.8 g/dL (3.2-5.2); Albumin/Globulin Ratio 0.9 (1-3); Calcium 8.8 mg/dL (8.6-10.3); Creatinine, Serum 0.38 mg/dL (0.67-1.17); Magnesium 2.1 mg/dL (1.9-2.7); Phosphorus 4.1 mg/dL (2.5-5.0); Potassium 4.4 mmol/L (3.5-5.0); Total Bilirubin 0.4 mg/dL (0.2-1.0); Total Protein 5.8 g/dL (6.4-8.9); eGFR CKD-EPI 118.5 (>60)
[2024-06-13 05:31] LABS: Calcium 8.7 mg/dL (8.6-10.3); Creatinine, Serum 0.37 mg/dL (0.67-1.17); Potassium 4.4 mmol/L (3.5-5.0); eGFR CKD-EPI 119.4 (>60)
[2024-06-13 10:14] LABS: Calcium 8.6 mg/dL (8.6-10.3); Creatinine, Serum 0.39 mg/dL (0.67-1.17); Phosphorus 3.8 mg/dL (2.5-5.0); Potassium 4.4 mmol/L (3.5-5.0); eGFR CKD-EPI 117.5 (>60)
[2024-06-14] MEDS: Metoprolol Tartrate 5 mg VIAL 5 ml VIAL (1 mg/ml) IV PRN (03:01)
[2024-06-14 04:16] LABS: Hematocrit 33.3 % (38-53); Hemoglobin 10.9 g/dL (13.2-16.3); Mean Corpuscular Hemoglobin 29.5 pg (27-33); Mean Corpuscular Hgb Conc 32.6 g/dL (31-36); Mean Corpuscular Volume 90.5 fL (80-97); Mean Platelet Volume 7.8 fL (7.5-11.2); Platelet Count 550 10^3/uL (150-450); Red Blood Count 3.68 10^6/uL (4.06-5.63); Red Cell Distribution Width 14.9 % (12-17); White Blood Count 28.6 10^3/uL (3.6-10.2)
[2024-06-14 04:55] LABS: Albumin 2.9 g/dL (3.2-5.2); Albumin/Globulin Ratio 0.9 (1-3); Calcium 8.9 mg/dL (8.6-10.3); Creatinine, Serum 0.43 mg/dL (0.67-1.17); Globulin 3.1 g/dL (2-4); Magnesium 2.2 mg/dL (1.9-2.7); Phosphorus 4.2 mg/dL (2.5-5.0); Potassium 4.8 mmol/L (3.5-5.0); Total Bilirubin 0.6 mg/dL (0.2-1.0); eGFR CKD-EPI 114.1 (>60)
[2024-06-14 08:16] LABS: ABS Basophils 0.2 10^3/uL (0.0-0.1); ABS Lymphocytes 0.4 10^3/uL (1.0-4.8); ABS Monocytes 1.2 10^3/uL (0.0-1.1); ABS Neutrophils 26.7 10^3/uL (1.5-7.6); ABS Nucleated RBC 0.01 10^3/ul; Lymphocyte % 1.5 %
[2024-06-15] MEDS: NS 0.9% 500 ml BAG 500 ML IV ONE (04:10)
[2024-06-15 05:56] LABS: Hematocrit 35.5 % (38-53); Hemoglobin 10.7 g/dL (13.2-16.3); Mean Corpuscular Hemoglobin 29.4 pg (27-33); Mean Corpuscular Hgb Conc 30.2 g/dL (31-36); Mean Corpuscular Volume 97.2 fL (80-97); Mean Platelet Volume 8.3 fL (7.5-11.2); Platelet Count 555 10^3/uL (150-450); Red Blood Count 3.65 10^6/uL (4.06-5.63); Red Cell Distribution Width 15.7 % (12-17); White Blood Count 29.2 10^3/uL (3.6-10.2)
[2024-06-15 06:09] LABS: ABS Lymphocytes 0.6 10^3/uL (1.0-4.8); ABS Monocytes 1.1 10^3/uL (0.0-1.1); ABS Neutrophils 27.5 10^3/uL (1.5-7.6); ABS Nucleated RBC 0.07 10^3/ul; Lymphocyte % 1.9 %; Nucleated Red Blood Cells % 0.2 %/100WBC (0.0-0.8)
[2024-06-15 06:32] LABS: Creatinine, Serum 1.48 mg/dL (0.67-1.17); Potassium 5.9 mmol/L (3.5-5.0); eGFR CKD-EPI 50.3 (>60)
[2024-06-15 06:54] LABS: Albumin 2.5 g/dL (3.2-5.2); Albumin/Globulin Ratio 0.8 (1-3); Globulin 3.1 g/dL (2-4); Magnesium 2.8 mg/dL (1.9-2.7); Phosphorus 8.3 mg/dL (2.5-5.0); Total Bilirubin 0.8 mg/dL (0.2-1.0); Total Protein 5.6 g/dL (6.4-8.9)
[2024-06-15] MEDS: Morphine 10 MG/ML VIAL (1 mL) 100 MG in NS 0.9% 100 ml BAG 90 ML IV SCH (09:27)
[2024-06-15] MEDS: Morphine 10 MG/ML VIAL (1 ml) IV ONE (09:41)
[2024-06-15] MEDS: LORazepam 2 mg VIAL 1 ml IV PUSH PRN (09:42)
[2024-06-15 10:31] VITALS: BP 82/47
[2024-06-15] MEDS: Morphine 10 MG/ML VIAL (1 ml) ONE (11:03)
== END 2024-06-15 10:00 | disposition expired | DRG 871 ==
LOC: EDHOLD 10:38 → ED 10:38 → OBSVTOIN 16:09 → SUATTDRO 16:09 → MED 20:54 → ICU 06-11 15:00
PROVIDERS: ADMIT Hospitalist; ATTEND Student in an Organized Health Care Education/Training Program